=== PATIENT | female | born 1960 | race African-American/Black ===

== ENCOUNTER 2019-05-27 15:38 | Emergency (ER) | payer OTHER ==
[~2019-05-27] VITALS: Ht 167.6 cm; Wt 136.1 kg
[2019-05-27] MEDS ORDERED: ASA81BEC PO (16:35)
[2019-05-27] MEDS ORDERED: PRINIVIL20 M1 PO (16:36)
[2019-05-27] MEDS ORDERED: HYDROCODON-ACE1 EAC5 PO (16:36)
[2019-05-27 18:45] VITALS: BP 126/80
== END 2019-05-27 18:45 | disposition home or self-care (01) ==
LOC: ER 15:38
DX: M25.512 Pain in left shoulder (principal); I10 Essential (primary) hypertension; M19.90 Unspecified osteoarthritis, unspecified site; F17.210 Nicotine dependence, cigarettes, uncomplicated